=== PATIENT | male | born 1975 | race Caucasian/White ===

== ENCOUNTER 2024-04-23 10:15 | Outpatient (REF) | payer BC, SELFPAY | END 2024-04-23 10:16 | disposition home or self-care (01) | LOC: HO.LNP 10:15 | PROVIDERS: PCP Family Medicine; Visit Provider Nurse Practitioner Family | DX: Z13.89 Encounter for screening for other disorder (principal) ==

== ENCOUNTER 2024-04-23 10:15 | Outpatient (AMB) | payer BC, SELFPAY ==
--- NOTE | 2024-04-23 10:19 | AM.OFFWIN_ITS ---
Intake Vital Signs 04/23/24 10:23 Height 5 ft 6 in Weight 189 lb BMI 30.5 BP 132/70 Blood Pressure Location Lt brachial Position Sitting Respiration 13 Pulse 91 Pulse Source Pulse Oximeter Pulse Oximetry (%) 98 Oxygen Delivery Method Room Air Intake Visit Reasons: sti symptoms Intake Note: Patient complaining of painful urination and discharge, patient also says his partner had a sti. 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 The patient reports experiencing dysuria, characterized by burning during urination, which began recently. On the morning of the visit, the patient noticed the onset of urethral discharge. The patient was exposed to an STI, although the specific infection has not yet been identified, as lab results are pending for the exposure source. There is no reported history of fever, chills, abdominal pain, nausea, or vomiting. The patient has no known allergies to medications. This is the initial presentation for the current symptoms. Physical Exam General: Awake, alert. No apparent distress Cardiovascular: Regular rate and rhythm Respiratory: Clear to auscultation bilaterally No abd tenderness. No CVAT. exam deferred given testing to be done. Results - Labs pending: Urinalysis, Gonorrhea an d Chlamydia testing, Syphilis, HIV, and Trichomoniasis screening. Plan - Prescribe Azithromycin to initiate margarito atment for suspected bacterial STIs, as Gonorrhea and Chlamydia are common along w/ cefixime 800mg po x1. - Arrange for urgent laboratory testing: urine analysis to check for Gonorrhea and Chlamydia, and blood tests for Syphilis, HIV, and Trichomoniasis. - Ensure prompt communication of test re sults via patient portal. - Advise patient regarding the importanc e of partner notification and treatment to prevent reinfection. Patient was informed and verbally consented to the use of an ambient scribe for clinic note documentation during this visit. Discussion Notes I discussed with the patient the likelihood of a bacterial sexually transmitted infection given the symptoms of dysuria and urethral discharge following an exposure. Azithromycin was prescribed as it effectively treats common bacterial STIs such as Gonorrhea and Chlamydia. I explained the testing process, including urine and blood tests, to pinpoint the causative pathogen and address possible STIs, including HIV. I informed the patient that results should be available by today and that I will send a message through the patient portal with further instructions once the results are received. We discussed the importance of partner treatment to prevent reinfection. Patient Instructions - Begin meds as prescribed. - Proceed to the lab for urine and blood tests as arranged. - Await test results, which will be comm unicated through the patient portal. - Ensure your partner receives treatment for STIs as well. - Monitor for any new symptoms or worsen ing of current symptoms, and seek medical attention if they occur. - Contact the medical facility if there are any questions or concerns regarding the prescribed treatment or symptoms. Total time spent caring for the patient today was 30 minutes. This includes time spent before the visit reviewing the chart, time spent during the visit, and time spent after the visit on documentation, reviewing laboratory results, diagnostic imaging, medications, performing a medically necessary evaluation, counseling on diagnoses, care coordination, ordering appropriate tests, ordering appropriate medications, review of tests performed by other providers, reporting test results with the patient, communication with other healthcare providers. Physical Exam Vital Signs: Last Vital Signs Pulse 91 04/23/24 10:23 Resp 13 04/23/24 10:23 BP 132/70 04/23/24 10:23 Pulse Ox 98 04/23/24 10:23 Oxygen Delivery Method Room Air 04/23/24 10:23 BMI result Body Mass Index 30.5 Assessment & Plan Assessment & Plan (1) STD exposure: Code(s): Z20.2 - Contact with and (suspected) exposure to infections with a predominantly sexual mode of transmission Plan . Orders: Orders Syphilis Screen Today Z11.3 - Encounter for screening for infections with a predominantly sexual mode of transmission CT NG by PCR Today Z11.3 - Encounter for screening for infections with a predominantly sexual mode of transmission HIV Ab/Ag Today Z11.3 - Encounter for screening for infections with a predominantly sexual mode of transmission UA CC w/rflx Micro + Cult Today Z20.2 - Contact with and (suspected) exposure to infections with a predominantly sexual mode of transmission Medications: New cefixime 400 mg PO ONCE 2 caps 0RF azithromycin 2,000 mg (4 x 500 mg) PO ONCE 4 tabs 0RF 1 day Coding Level of Care Code Est Pt Level 4 (80896) Diagnoses STD exposure Z20.2
[2024-04-23 10:23] VITALS: BP 132/70; PULSE 91; RESP 13; O2SAT 98; BMI 30.5
--- OUTSIDE RECORDS SUMMARY | 2024-04-23 10:39 | XMS_ITS | Data Portability ---
Author Organization [facility], Main Office Address [address] [facility] [address] [place] [id number] Care Team Providers Care Warehouse Checker Name Role Phone LIOR OBREGON Primary Care Provider [facility] Referring Provider DIVYA REYNA Referring Provider Assessment No assessment recorded. Plan of Treatment Reminders Order Date Submit Date Provider Last Modified By Organization Details Last Modified Time Details Appointments None recorded. Lab HIV (1+2) Ab screen, serum 2014 015 KEERTHI Not available 5 10:45:14 RPR (rapid plasma reagin), serum 2014 015 KEERTHI Not available 5 11:12:10 hbsab (hepatiti s B surface Ab) titer, serum 2014 015 KEERTHI Not available 5 10:48:12 hepatitis C Ab, serum 2014 015 KEERTHI Not available 5 10:47:11 HBsAg (hepatiti s B surface Ag), quantitat jennifer, serum 2014 015 abolcun Not available 5 11:56:34 CT + NG DNA, PCR, urine 2014 015 KEERTHI Not available 5 14:20:13 urinalysi s, complete 2014 015 KEERTHI Not available 5 14:14:12 CBC w/ auto diff 2014 015 KEERTHI Not available 5 13:42:08 lipid panel, serum 2014 015 KEERTHI Not available 5 14:12:10 CMP, serum or plasma 2014 015 KEERTHI Not available 5 14:12:09 culture, aerobic, throat 2014 015 abolcun Not available 6 09:16:57 Referral pulmonary disease specialis t referral - for eval of patient with exercise induced dyspnea/w heezing 2014 015 gary Rqoue, [address] [place] [address] [place], [address], 5 11:47:30 nutrition ist/dieti shabana referral 2014 015 pelonowski Not available 5 08:11:45 Procedures None recorded. Surgeries None recorded. Imaging None recorded. Medication Orders ceftriaxo ne 250 mg solution for injection 2014 015 pelonowski Not available 6 11:48:06 azithromy al 500 mg tablet 2014 015 olga [id number], [address] [facility], [place], [address], 6 11:48:06 Patient Targets Encounter Date Encounter Id Patient Goals Patient Target Last Modified By Organization Details Last Modified Time 06/07/2014 [id number] senior care goal of Excess Body Weight Loss % 5 Not available Not available Not available Pt advised and agrees to work on self-monitoring behaviors; begin an appropriate diet for weight loss (such as a low carbohydrate diet), to do moderate exercise (such as walking) for approximately 150 minutes per week; and to identify desirable and timely rewards that will reinforce achievement of specific weight loss goals. 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 Referral for Dyspnea on exertion for eval of patient with exercise induced dyspnea/wheezing Referring Physician: Lior Obregon [facility], Encounter Date: 06/07/2014 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 Refer ral for Body mass index 30+ - obesity Referring Physician: Lior Obregon [facility], Encounter Date: 06/07/2014 Results Created Date Observation Date Name Description Value Unit Range Abnormal Flag Note LastModifiedBy Organization Detail LastModifiedTime 06/13/19 15 06/12/2014 CBC w/ auto diff WBC 5.5 K/mm3 (4.0-1 1.0) Not Available [facility] [address] [place], [address], 06/12/2014 13:42:08 06/13/19 15 06/12/2014 CBC w/ auto diff RBC 5.01 M/mm3 (4.70- 6.10) Not Available [facility] [address] [place], [address], 06/12/2014 13:42:08 06/13/19 15 06/12/2014 CBC w/ auto diff HGB 15.9 gm/dL (14.0- 18.0) Not Available [facility] [address] [place], [address], 06/12/2014 13:42:08 06/13/19 15 06/12/2014 CBC w/ auto diff HCT 44.6 % (42.0- 52.0) Not Available [facility] [address] [place], [address], 06/12/2014 13:42:08 06/13/19 15 06/12/2014 CBC w/ auto diff MCV 89.0 fL (80.0- 94.0) Not Available [facility] [address] [place], [address], 06/12/2014 13:42:08 06/13/19 15 06/12/2014 CBC w/ auto diff MCH 31.7 pg (27.0- 34.0) Not Available [facility] [address], [address], 06/12/2014 13:42:08 06/13/19 15 06/12/2014 CBC w/ auto diff MCHC 35.7 % (33.0- 37.0) Not Available [facility] [address] [place], [address], 06/12/2014 13:42:08 06/13/19 15 06/12/2014 CBC w/ auto diff plt 264 K/mm3 (150-4 60) Not Available [facility] [address] [place], [address], 06/12/2014 13:42:08 06/13/19 15 06/12/2014 CBC w/ auto diff RDW-SD 39.8 fL (<47.0 ) Not Available [facility] [address] [place], [address], 06/12/2014 13:42:08 06/13/19 15 06/12/2014 CBC w/ auto diff MPV 9.9 fL (9.4-1 2.4) Not Available [facility] [address] [place], [address], 06/12/2014 13:42:08 06/13/19 15 06/12/2014 CBC w/ auto diff automated NRBC 0.0 #/100 _WBC' s Not Available [facility] [address] [place], [address], 06/12/2014 13:42:08 06/13/19 15 06/12/2014 CBC w/ auto diff abs. NRBC 0.0 K/mm3 Not Available [facility] [address] [place], [address], 06/12/2014 13:42:08 06/13/19 15 06/12/2014 CBC w/ auto diff neut # 3.2 K/mm3 (1.3-7 .0) Not Available [facility] [address] [place], [address], 06/12/2014 13:42:08 06/13/19 15 06/12/2014 CBC w/ auto diff lymph # 1.6 K/mm3 (0.8-3 .1) Not Available [facility] [address] [place], [address], 06/12/2014 13:42:08 06/13/19 15 06/12/2014 CBC w/ auto diff mono# 0.6 K/mm3 (0.4-1 .3) Not Available [facility] [address] [place], [address], 06/12/2014 13:42:08 06/13/19 15 06/12/2014 CBC w/ auto diff eo # 0.1 K/mm3 (0.0-0 .4) Not Available [facility] [address] [place], [address], 06/12/2014 13:42:08 06/13/19 15 06/12/2014 CBC w/ auto diff baso # 0.1 K/mm3 (0.0-0 .1) Not Available [facility] [address] [place], [address], 06/12/2014 13:42:08 06/13/19 15 06/12/2014 CBC w/ auto diff abs. imm gran 0.0 K/mm3 Not Available [facility] [address] [place], [address], 06/12/2014 13:42:08 06/13/19 15 06/12/2014 CBC w/ auto diff neut 57.2 % (44-76 ) Not Available [facility] [address] [place], [address], 06/12/2014 13:42:08 06/13/19 15 06/12/2014 CBC w/ auto diff lymph 29.0 % (15-43 ) Not Available [facility] [address] [place], [address], 06/12/2014 13:42:08 06/13/19 15 06/12/2014 CBC w/ auto diff monocyte 10.0 % (4.5-1 0.5) Not Available [facility] [address] [place], [address], 06/12/2014 13:42:08 06/13/19 15 06/12/2014 CBC w/ auto diff eo 2.5 % (0-6) Not Available [facility] [address] [place], [address], 06/12/2014 13:42:08 06/13/19 15 06/12/2014 CBC w/ auto diff baso 0.9 % (0-2) Not Available [facility] [address] [place], [address], 06/12/2014 13:42:08 06/13/19 15 06/12/2014 CBC w/ auto diff imm gran 0.4 % (0.0-0 .6) Not Available [facility] [address] [place], [address], 06/12/2014 13:42:08 06/13/19 15 06/12/2014 CMP, serum or plasm a glucose 115 mg/dL (70-99 ) high Not Available [facility] [address] [place], [address], 06/12/2014 14:12:08 06/13/19 15 06/12/2014 CMP, serum or plasm a BUN 18 mg/dL (6-20) Not Available [facility] [address] [place], [address], 06/12/2014 14:12:08 06/13/19 15 06/12/2014 CMP, serum or plasm a creatinine 0.9 mg/dL (0.7-1 .2) Not Available [facility] [address] [place], [address], 06/12/2014 14:12:08 06/13/19 15 06/12/2014 CMP, serum or plasm a sodium 140 mmol/ L (133-1 45) Not Available [facility] [address] [place], [address], 06/12/2014 14:12:08 06/13/19 15 06/12/2014 CMP, serum or plasm a potassium 4.4 mmol/ L (3.6-5 .2) Not Available [facility] [address] [place], [address], 06/12/2014 14:12:08 06/13/19 15 06/12/2014 CMP, serum or plasm a chloride 104 mmol/ L (98-10 7) Not Available [facility] [address] [place], [address], 06/12/2014 14:12:08 06/13/19 15 06/12/2014 CMP, serum or plasm a bicarbonate 24 mmol/ L (22-29 ) Not Available [facility] [address] [place], [address], 06/12/2014 14:12:08 06/13/19 15 06/12/2014 CMP, serum or plasm a anion gap 12 (4-17) Not Available [facility] [address] [place], [address], 06/12/2014 14:12:08 06/13/19 15 06/12/2014 CMP, serum or plasm a albumin 4.6 gm/dL (3.4-4 .8) Not Available [facility] [address] [place], [address], 06/12/2014 14:12:08 06/13/19 15 06/12/2014 CMP, serum or plasm a calcium 9.4 mg/dL (8.6-1 0.5) Not Available [facility] [address] [place], [address], 06/12/2014 14:12:08 06/13/19 15 06/12/2014 CMP, serum or plasm a bilirubin,to donnie 0.4 mg/dL (0-1.2 ) Not Available [facility] [address] [place], [address], 06/12/2014 14:12:08 06/13/19 15 06/12/2014 CMP, serum or plasm a total protein 6.8 gm/dL (6.2-8 .2) Not Available [facility] [address] [place], [address], 06/12/2014 14:12:08 06/13/19 15 06/12/2014 CMP, serum or plasm a Ag ratio 2.1 Not Available [facility] [address] [place], [address], 06/12/2014 14:12:08 06/13/19 15 06/12/2014 CMP, serum or plasm a AST 47 U/L (0-38) high Not Available [facility] [address] [place], [address], 06/12/2014 14:12:08 06/13/19 15 06/12/2014 CMP, serum or plasm a alk phos 56 U/L (40-12 9) Not Available [facility] [address] [place], [address], 06/12/2014 14:12:08 06/13/19 15 06/12/2014 CMP, serum or plasm a ALT 39 U/L (0-41) Not Available [facility] [address] [place], [address], 06/12/2014 14:12:08 06/13/19 15 06/12/2014 CMP, serum or plasm a est GFR non >60 mL/mi n/1.7 3_M2 THE MDRD STUDY 'S ESTIM ATED GFR EQUAT ION HAS NOT BEEN VALID ATED IN CHILD SCHUYLER (<18 YRS), PREGN ANT WOMEN , THE ELDER LY (AGE >70 YRS), RACIA L OR ETHNI C SUBGR OUPS OTHER THAN CAUCA SIANS AND AFRIC AN AMERI CANS. Not Available [facility] [address] [place], [address], 06/12/2014 14:12:08 06/13/19 15 06/12/2014 CMP, serum or plasm a est GFR >60 mL/mi n/1.7 3_M2 THE MDRD STUDY 'S ESTIM ATED GFR EQUAT ION HAS NOT BEEN VALID ATED IN CHILD SCHUYLER (<18 YRS), PREGN ANT WOMEN , THE ELDER LY (AGE >70 YRS), RACIA L OR ETHNI C SUBGR OUPS OTHER THAN JAGRUTI MERAZ AND AFRIC AN AMERI CANS. Not Available [facility] [address] [place], [address], 06/12/2014 14:12:08 06/13/19 15 06/12/2014 lipid panel , serum cholesterol, total 179 mg/dL (<200) Not Available [facility] [address] [place], [address], 06/12/2014 14:12:10 06/13/19 15 06/12/2014 lipid panel , serum triglyceride 88 mg/dL (<150) Not Available [facility] [address] [place], [address], 06/12/2014 14:12:10 06/13/19 15 06/12/2014 lipid panel , serum HDL chol 54 mg/dL (>39) Not Available [facility] [address] [place], [address], 06/12/2014 14:12:10 06/13/19 15 06/12/2014 lipid panel , serum LDL cholesterol, calculated 107 mg/dL (0-130 ) Not Available [facility] [address] [place], [address], 06/12/2014 14:12:10 06/13/19 15 06/12/2014 lipid panel , serum non HDL cholesterol (calc) 125 mg/dL (<160) Not Available [facility] [address] [place], [address], 06/12/2014 14:12:10 06/13/19 15 06/12/2014 urina lysis , compl ete appear/color LIGHT YELLO W CLEAR Not Available [facility] [address] [place], [address], 06/12/2014 14:14:12 06/13/19 15 06/12/2014 urina lysis , compl ete sp. gravity 1.023 (1.002 -1.030 ) Not Available [facility] [address] [place], [address], 06/12/2014 14:14:12 06/13/19 15 06/12/2014 urina lysis , compl ete urine pH 7.0 (4.0-8 .0) Not Available [facility] [address] [place], [address], 06/12/2014 14:14:12 06/13/19 15 06/12/2014 urina lysis , compl ete urine albumin NEGATI VE (neg) Not Available [facility] [address], [address], 06/12/2014 14:14:12 06/13/19 15 06/12/2014 urina lysis , compl ete urine glucose NEGATI VE (neg) Not Available [facility] [address], [address], 06/12/2014 14:14:12 06/13/19 15 06/12/2014 urina lysis , compl ete urine ketones NEGATI VE (neg) Not Available [facility] [address], [address], 06/12/2014 14:14:12 06/13/19 15 06/12/2014 urina lysis , compl ete urine bilirubin NEGATI VE (neg) Not Available [facility] [address] [place], [address], 06/12/2014 14:14:12 06/13/19 15 06/12/2014 urina lysis , compl ete urine hemoglobn NEGATI VE (neg) Not Available [facility] [address] [place], [address], 06/12/2014 14:14:12 06/13/19 15 06/12/2014 urina lysis , compl ete urine nitrite NEGATI VE (neg) Not Available [facility] [address] [place], [address], 06/12/2014 14:14:12 06/13/19 15 06/12/2014 urina lysis , compl ete urine leukocyte NEGATI VE (neg) Not Available [facility] [address] [place], [address], 06/12/2014 14:14:12 06/13/19 15 06/12/2014 urina lysis , compl ete urobilinogen NORMAL mg/dL (norm) Not Available [facility] [address] [place], [address], 06/12/2014 14:14:12 06/13/19 15 06/12/2014 urina lysis , compl ete urine WBC's <1 /hpf (0-5) Not Available [facility] [address] [place], [address], 06/12/2014 14:14:12 06/13/19 15 06/12/2014 urina lysis , compl ete urine RBC's 1 /hpf (<3) Not Available [facility] [address] [place], [address], 06/12/2014 14:14:12 06/13/19 15 06/13/2014 HIV (1+2) Ab scree n, serum HIV 1/HIV 2 Ab NEGAT JENNIFER REFER ENCE RANGE : NEGAT JENNIFER ADDIT IONAL NOTE: WRITT EN PATIE NT AUTHO RIZAT ION IS REQUI RED FOR EACH SEPAR ATE RELEA SE OF THIS TEST RESUL T. Not Available [facility] [address] [place], [address], 06/13/2014 10:45:14 06/13/19 15 06/13/2014 HBsAg (hepa titis B surfa ce Ag), serum hep. B surf. Ag NEGAT JENNIFER REFER ENCE RANGE : NEGAT JENNIFER Not Available [facility] [address] [place], [address], 06/13/2014 10:47:09 06/13/19 15 06/13/2014 hepat itis C virus Ab, serum anti-hepatit is C NEGAT JENNIFER REFER ENCE RANGE : NEGAT JENNIFER Not Available [facility] [address] [place], [address], 06/13/2014 10:47:10 06/13/19 15 06/13/2014 hepat itis B surfa ce Ab, quali tativ e, serum anti-hbs NEGAT JENNIFER INDIC ATES LACK OF PRIOR EXPOS URE. Not Available [facility] [address] [place], [address], 06/13/2014 10:48:12 06/13/19 15 06/13/2014 RPR (rapi d plasm a reagi n), serum RPR NONREA CTIVE (nr) Not Available [facility] [address] [place], [address], 06/13/2014 11:12:10 06/13/19 15 06/13/2014 RPR (rapi d plasm a reagi n), serum RPR titer NOT INDICA ALEXIS Not Available [facility] [address] [place], [address], 06/13/2014 11:12:10 06/13/19 15 06/13/2014 RPR (rapi d plasm a reagi n), serum T.pallidum Ab NOT INDICA ALEXIS Not Available [facility] [address] [place], [address], 06/13/2014 11:12:10 06/13/19 15 06/13/2014 CT + NG DNA, PCR, unspe cifie d speci men urine chlamydia amp probe NEGAT JENNIFER No Chlam ydia Trach omati s RNA detec alexis in this patie nt's sampl e (REFE RENCE RANGE /NORM AL VALUE : NOT DETEC ALEXIS) Not Available [facility] [address] [place], [address], 06/13/2014 14:20:13 06/13/19 15 06/13/2014 CT + NG DNA, PCR, unspe cifie d speci men urine GC amp probe NEGAT JENNIFER No Neiss eria Gonor rhoea e RNA detec alexis in this patie nt's sampl e (REFE RENCE RANGE /NORM AL VALUE : NOT DETEC ALEXIS) NOTE: This test uses trans cript ion-m ediat ed ampli ficat ion metho d to detec t rRNA from C.Tra choma tis and N.Hipolito orrho eae. A negat jennifer resul t does not precl ude infec tion. In the case of a negat jennifer urine resul t, testi ng of an endoc ervic al(fe male) or ureth ral(m ofelia) speci men is recom dominique d if there is high clini seble suspi cion of infec tion. The perfo rmanc e ibrahima cteri stics of this test have not been evalu ated in child schuyler. The Aptim a Combo 2 assay is not inten ded for the evalu ation of suspe cted sexua l abuse or for other medic o-leg al indic ation s. The order ing provi bin shoul d asses s if the patie nt had conse nsual sex witho ut risk of sexua l abuse . [facility] if neede d. Conta ct phone numbe r . Thera peuti c failu re or succe ss canno t be deter mined with the Aptim a Combo 2 assay since nucle ic acid may persi st follo wing appro priat e antim icrob ial thera py. The [facility] se Cont[facility] ol and Preve ntion ([facility]) recom mends confi rmato ry retes ting using cultu re or a diffe rent nucle ic acid ampli ficat ion test when posit jennifer resul ts occur , if indic ated. Not Available [facility] [address] [place], [address], 06/13/2014 14:20:13 03/21/20 15 03/21/2015 strep tococ cus group A, cultu re, throa t specimen description THROAT SWAB Not Available [facility] [address] [place], [address], 03/23/2015 07:42:16 03/21/20 15 03/21/2015 strep tococ cus group A, cultu re, throa t special requests NONE Not Available [facility] [address] [place], [address], 03/23/2015 07:42:16 03/21/20 15 03/23/2015 strep tococ cus group A, cultu re, throa t culture NO GROUP A BETA HEMOLY TIC STREPT OCOCCI ISOLAT ED Not Available [facility] [address] [place], [address], 03/23/2015 07:42:16 03/21/20 15 03/23/2015 strep tococ cus group A, cultu re, throa t report status FINAL 2014 Not Available [facility] [address] [place], [address], 03/23/2015 07:42:16 Result Notes None recorded. Problems Name Problem SNOMED Code Status Onset Date Resolution Date Notes Provider Name and Address Organization Details Recorded Time Tinnitus 63582009 Active Lior Obregon MD [address] [facility] [address], [place], [address], [facility] 5 09:52:44 Psoriasis 1417254 Active Lior Obregon MD [address], [place], [address], [facility] 5 09:52:44 Gastroesoph ageal reflux disease 490943504 Active Lior Obregon MD [address] [facility] [address], [place], [address], [facility] 5 09:52:44 Sinusitis 52819514 Completed 06/07/2014 Lior Obregon MD [address], [place], [address], [facility] 5 09:52:44 Epidermoid cyst 686233586 Completed 06/07/2014 Lior Obregon MD [address], [place], [address], [facility] 5 09:52:44 Body mass index 30+ - obesity 067595074 Active Lior Obregon MD [address], [place], [address], [facility] 5 09:52:44 Dyspnea on exertion 11531640 Active Lior Obregon MD [address], [place], [address], [facility] 5 09:52:44 Abnormal liver function 13240658 Active Lior Obregon MD [address], [place], [address], [facility] 5 09:52:44 Impaired fasting glycemia 053342484 Active Lior Obregon MD [address], [place], [address], [facility] 5 09:52:44 Acute pharyngitis 909113824 Active Lior Obregon MD [address], [place], [address], [facility] 6 11:48:06 Problem Notes None recorded. Procedures Surgical History Date Name Laterality Status Provider Name and Address Organization Details Recorded Time 9 Other completed Harleen Bentley MA [facility] 06/07/2014 11:04:20 9 Tonsillectomy completed Harleen Bentley MA [facility] 06/07/2014 11:04:20 9 ENT Surgery completed Harleen Bentley MA [facility] 06/07/2014 11:04:20 9 Adenoidectomy completed Harleen Bentley MA [facility] 06/07/2014 11:04:20 6 Circumcision completed Harleen Bentley MA [facility] 06/07/2014 11:04:20 Imaging Results None recorded. Procedure Notes None recorded. Medical Equipment None Reported. Allergies No known drug allergies Medications Name Sig Start Date Stop Date Status Note LastModified by Organization Details LastModified Time ceftriaxone 250 mg solution for injection Take 250 g every day by injection route for 1 day. 2014 active Not Available Not Available Not Avai lable azithromycin 500 mg tablet Take 2 tablets every day by oral route for 1 day. 2014 active Not Available Not Available Not Avai lable Vitals Date Recorded Oxygen saturation Oxygen saturation in Arterial blood by Pulse oximetry Body weight Heart rate Body mass index (BMI) Body height Body temperature Systolic blood pressure Diastolic blood pressure Provider Name and Address Organization Details Last Updated DateTime 5 97 % 97 % 16044.1 3666 g 64 /min 35.2 kg/m2 167.64 cm 98.4 [degF] 120 mm[Hg] 80 mm[Hg] Hraleen Bentley MA [facility] 5 11:02:39 Date Recorded Body height Body weight Oxygen saturation Oxygen saturation in Arterial blood by Pulse oximetry Body mass index (BMI) Heart rate Body temperature Systolic blood pressure Diastolic blood pressure Provider Name and Address Organization Details Last Updated DateTime 5 167.64 cm 73969.1 8082 g 97 % 97 % 30 kg/m2 64 /min 97.6 [degF] 126 mm[Hg] 76 mm[Hg] Tommy Ferro [facility] 5 09:25:40 Social History Question Answer Notes LastModified by Organizat ion Details LastModified Time Tobacco Smoking Status Former Smoker INEZ Polo [facility] 06/07/2014 11:04:13 Do You Have An Advance Directive? Yes Information not available 06/07/2014 What Is Your Level Of Alcohol Consumption? Moderate Information not available 06/07/2014 Animal Exposure? Yes Informat ion not available 06/07/2014 Do You Wear A Helmet When Biking? Yes Information not available 06/07/2014 Is Blood Transfusion Acceptable In An Emergency? No Information not available 06/07/2014 What Is Your Level Of Caffeine Consumption? Heavy Information not available 06/07/2014 Are You Currently Employed? Yes Information not available 06/07/2014 What Type Of Diet Are You Following? REGULAR Information not available 06/07/2014 Which Illicit Or Recreational Drugs Have You Used? 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 Yes Information not available 06/07/2014 How Many Days In The Past Year Have You Had A Heavy Drinking Consumption (4+ Female, 5+ Male)? 20 Information not available 06/07/2014 Are There Any Guns Present In Your Home? No Information not available 06/07/2014 What Is Your Home Situation? Other Information not available 06/07/2014 Legally Blind In One Or Both Eyes? No Information not available 06/07/2014 Marital Status Single Informatio n not available 06/07/2014 Total Number Of Stairs In Home 13 Information not available 06/07/2014 How Many Children Do You Have? 0 Information not available 06/07/2014 Do You Use Protection During Sex? Usually Information not available 06/07/2014 Difficulty Reading? No Information not available 06/07/2014 What Is Your Relationship Status? Single Information not available 06/07/2014 Seat Belts Used Routinely Yes Information not available 06/07/2014 Are You Sexually Active? Yes Information not available 06/07/2014 Are You Passively Exposed To Smoke? No Information not available 06/07/2014 What Types Of Sporting Activities Do You Participate In? Gym (4/week), Baseball Information not available 06/07/2014 Do You Use Any Illicit Or Recreational Drugs? No Information not available 06/07/2014 Do You Use Sunscreen Routinely? No Information not available 06/07/2014 Sex: Unknown Functional Status Question Answer Note LastModified by Organizat ion Details LastModified Time Do you have difficulty walking or climbing stairs? No Information not available 06/07/2014 [address]iculty driving at night? No Information not available 06/07/2014 Are you able to care for yourself? Yes Information n ot available 06/07/2014 Do you have difficulty dressing or bathing? No Information not available 06/07/2014 What is your exercise level? Moderate Information not available 06/07/2014 Mental Status Question Answer Note LastModified by Organization D etails LastModified Time Do you have difficulty concentrating, remembering or making decisions? No Information no t available 06/07/2014 Family History Relationship Description Onset Age of this Age Resolved Age Notes LastModified by Organization Details LastModified Time Maternal Grandmother Arthritis 55 78 abolcun Not available 09/2014 11:07:08 Maternal Grandmother Heart disease 70 78 abolcun Not available 2014 11:07:08 Paternal Grandfather Arthritis 55 64 abolcun Not available 09/2014 11:07:08 Paternal Grandfather Malignant tumor of lung 62 64 abolcun Not available 2014 11:07:08 Paternal Grandfather Obesity 45 64 abolcun Not available 2014 11:07:08 Mother Depressive disorder 35 abolcun Not available 2014 11:07:08 Mother Asthma 50 abolcun Not available 11:07:08 Mother Anxiety disorder 35 abolcun Not available 2014 11:07:08 Brother Allergy 13 abolcun Not available 06/07/2014 11:07:08 Brother Asthma 13 abolcun Not available 0 06/07/2014 11:07:08 Paternal Grandmother Hypertensive disorder 78 abolcun Not available 2014 11:07:08 Paternal Grandmother Dementia 87 abolcun Not available 06/07 11:07:08 Paternal Grandmother Heart disease 80 abolcun Not available 2014 11:07:08 Paternal Grandmother Blood coagulation disorder 75 abolcun Not available 2014 11:07:08 Maternal Aunt Blood coagulation disorder 45 49 abolcun Not available 2014 11:07:08 Maternal Aunt Malignant tumor of ovary 48 49 abolcun Not available 2014 11:07:08 Father Obesity 50 abolcun Not available 0 06/07/2014 11:07:08 Father Sleep disorder 50 abolcun Not available 2014 11:07:08 Maternal Grandfather Malignant tumor of lung 66 69 abolcun Not available 2014 11:07:08 Maternal Grandfather Diabetes mellitus 60 71 abolcun Not available 2014 11:07:08 Maternal Grandfather Obesity 50 71 abolcun Not available 2014 11:07:08 Medical History Condition Response Other Y Gout N Kidney Stones N Blood Diseases N Hyperthyroidism N Breast Cancer N Hypothyroidism N Lung Disease N COPD N Depression N Defects or Inherited Disease N Anesthesia Complications N Headaches/Migraines Y Varicose Veins N Anxiety Disorder N Obesity Y Vision or Eye Problems Y Arthritis N Head Injury/Concussion N Infertility N Polyps N Congenital Anomalies N Acid Reflux (GERD) Y Cancer N Stroke N ADHD N Endometriosis N High Cholesterol N Liver Disease N Fibromyalgia N Kidney Disease N Heart Problems N Ear or Hearing Problems Y Hospitalizations Y Thyroid Problems N GI Problems Y Acne N Eating Disorder N Skin Problems Y Anemia N Constipation N Bladder Problems N Mental Illness N Ovarian Cancer N Diabetes N Blood Transfusions N Seizures/Epilepsy N Tuberculosis N AIDS/HIV N Congestive Heart Failure (CHF) N Eczema N Diverticulitis N Abuse/Domestic Violence N Asthma N Allergies N Reflux/GERD Y Hepatitis N Pulmonary Embolism N Hypertension N Chicken Pox N Autism Spectrum Disorder (ASD) N Osteoporosis N Immunizations Vaccine Type Date Status Note Provider Nam e and Address Organization Details Recorded Time Tdap 06/07/2014 completed Not Available [facility] 04/21/2019 02:21:44 Influenza, high-dose, trivalent, PF 02/02/2014 completed INE[facility] Pol[facility] 06/07/2014 11:03:23 Past Encounters Encounter ID Performer Location Encounter Start Date Encounter Closed Date Diagnosis/Indication Diagnosis SNOMED-CT Code Diagnosis ICD10 Code Diagnosis Note [id number] Harleen Bentley MA Main Office [address] [address] [place] [address] 06/07/2014 10:42:44 06/07/2014 11:57:48 Adult health examination [id number] Will update immunizati on status and screen based on risk factors. Regular dental and ophtho care advised as well as seatbelt and sunscreen use. Distracted driving discussed. Monthyly HAM advised. Advance directives in place. Administra tion of diphtheria, pertussis, and tetanus vaccine [id number] Body mass index 30+ - obesity [id number] Dyspnea on exertion [id number] Symptoms suspicious for asthma. Will refer to pulm for further evalution. [facility] risk of sexually transmitted infection [id number] Lior Obregon MD Main Office [address] [address] [place] [address] 03/21/2015 09:15:18 03/21/2015 10:16:22 Acute pharyngitis 304152759 J02.9 Strep unlikely but pt is at risk for STD etiology. Will cover empiricall y and follow up culture results. Health Concerns Section Related Observation LastModified by Organization Detai ls LastModified Time None Recorded Concern Status LastModified by Organization Details LastModified Time None Recorded Advance Directives Directive Y: Payers Encounter Date Sequence Insurance Name Policy Number Policy Benoit Covered Member ID Benoit Member ID Guarantor Name 06/07/2014 1 [employer] ACCESS PLUS [id number] Jay C Oldmixon [id number] Jay C Oldmixon 03/21/[address] [place] [id number] [place] [place] [id number] Jay C Oldmixon [id number] Jay C Oldmixon Notes Date Note Type Note Provider Name and Address Organization Details Recorded Time 03/21/2015 text/html Throat PainReported bypatient.Location :bilateral Quality:sharp; sore Duration:started 1 week(s) ago Onset/Timing:gradu al Context:URI Associated Symptoms:coughing with mild sputum;hoarsenessN otes:Has engaged on oral sex with male partners numerous times in the past few weeks. [facility]. Lior Obregon MD [address] [address], [place], [address], [facility] 04/06/2015 11:48:30
== END 2024-04-23 10:58 | disposition home or self-care (01) ==
LOC: HO.HMCWIW 10:16
PROVIDERS: PCP Family Medicine; Visit Provider Nurse Practitioner Family
DX: Z20.2 Contact with and (suspected) exposure to infections with a predominantly sexual mode of transmission (principal)

== ENCOUNTER 2024-04-23 10:47 | Outpatient (REF) | payer BC, SELFPAY | END 2024-04-23 10:48 | disposition home or self-care (01) | LOC: HO.LAB 10:47 | PROVIDERS: Visit Provider Nurse Practitioner Family | DX: Z13.89 Encounter for screening for other disorder (principal) ==

== ENCOUNTER 2024-04-23 10:54 | Outpatient (REF) | payer BC, SELFPAY ==
[2024-04-23 14:17] LABS: HIV AB/AG Nonreactive (Nonreactive); HIV Num 1 0.06 S/CO (0.00-0.99)
[2024-04-23 14:18] LABS: Syphilis Screen Nonreactive (Nonreactive)
[2024-04-23 14:19] LABS: Appearance Urine Turbid; Color Urine Yellow; Glucose Urine UA Negative (Negative); Leukocyte Esterase Urine Negative (Negative); Nitrite Urine Negative (Negative); PH 6.5 (5.0-9.0); Specific Gravity - Urine >= 1.030 (1.005-1.025); Urine Blood Negative (Negative); Urine Ketones 15 mg/dL (Negative); Urine Protein Trace mg/dL (Neg-Trace)
[2024-04-23 15:38] LABS: CT PCR NOT DETECTED (Not Detect.); NG PCR NOT DETECTED (Not Detect.)
== END 2024-04-23 10:55 | disposition home or self-care (01) ==
LOC: HO.WFDLDS 10:54
PROVIDERS: Visit Provider Nurse Practitioner Family
DX: Z11.3 Encounter for screening for infections with a predominantly sexual mode of transmission (principal); Z20.2 Contact with and (suspected) exposure to infections with a predominantly sexual mode of transmission
CPT/HCPCS: 81003; 86780; 87389; 87491; 87591